=== PATIENT | female | born 1975 | race Two or more races ===

== ENCOUNTER 2017-06-24 16:59 | Emergency (ER) | payer SELFPAY ==
[~2017-06-24] VITALS: Ht 162.6 cm; Wt 61.2 kg
--- NOTE | 2017-06-24 17:05 | NUR ---
BBRA FOR ALCOHOL INTOXICATION, PT WAS FOUND SITTING IN THE PARKING LOT W/ EMPTY BOTTLES OF ALCOHOL. PASSERBY CALLED 911. PATIENT IS CURRENTLY A/OX 3, BREATHING EVEN AND UNLABORED. NO SOB, NAD, VITALS STABLE. SAFETY AND COMFORT MEASURES IN PLACE. AWAITING MD ORDERS
[2017-06-24 17:27] LABS: EOSINOPHILS % (AUTO) 0.8 % (0.0-6.0); HEMATOCRIT 31 % (33-45); HEMOGLOBIN 10.4 g/dL (11.5-14.8); LYMPHOCYTES # (AUTO) 2.4 /CMM (0.8-4.8); LYMPHOCYTES % (AUTO) 47.1 % (20.0-44.0); MEAN CORPUSCULAR HGB CONC 33 g/dl (31.0-36.0); MEAN CORPUSCULAR VOLUME 87 fL (82-100); MONOCYTES # (AUTO) 0.4 /CMM (0.1-1.30); MONOCYTES % (AUTO) 8.2 % (2.0-12.0); NEUTROPHILS # (AUTO) 2.3 /CMM (1.8-8.9); NEUTROPHILS % (AUTO) 43.9 % (43.0-81.0); PLATELET COUNT (AUTO) 297 /CMM (150-450); RDW COEFFICIENT OF VARIATION 15.7 (11.5-15.0); WHITE BLOOD COUNT (AUTO) 5.2 K/uL (4.3-11.0)
[2017-06-24 17:39] LABS: CALCIUM, SERUM 7.9 mg/dL (8.5-10.1); CARBON DIOXIDE 27 mmol/L (21-32); CHLORIDE 110 mmol/L (98-107); CREATININE 0.7 mg/dL (0.6-1.3); GLUCOSE 118 mg/dL (74-106); POTASSIUM 3.1 mmol/L (3.5-5.1); SODIUM SERUM 148 mmol/L (136-145); UREA NITROGEN, BLOOD 15 mg/dL (7-18)
[2017-06-24 17:58] LABS: ALANINE AMINOTRANSFERASE 32 U/L (12-78); ALBUMIN 3.1 g/dL (3.4-5.0); ALCOHOL, BLOOD 438 mg/dL (0-0); ALKALINE PHOSPHATASE 70 U/L (46-116); ASPARTATE AMINOTRANSFERASE 39 U/L (15-37); BILIRUBIN,TOTAL 0.2 mg/dL (0.2-1.0); SALICYLATE 2.8 mg/dL (2.8-20.0); TOTAL PROTEIN, SERUM 6.4 g/dL (6.4-8.2)
[2017-06-24 17:59] LABS: ACETAMINOPHEN < 10 ug/ml (10-30)
--- NOTE | 2017-06-24 19:00 | NUR ---
REPORT GIVEN TO CHRISTIAN SANFORD FOR MARY.
--- NOTE | 2017-06-24 19:01 | NUR ---
RECEIVED REPORT FROM JUVENAL RONDON
--- NOTE | 2017-06-24 19:18 | NUR ---
PT NOTED WITH STEADY GAIT. AOX3. WAS GIVEN JUICE PER CH[employer]DER SILVINA.
--- NOTE | 2017-06-24 19:20 | NUR ---
Patient eloped from facility. [facility] notified.
[2017-06-24 19:22] VITALS: BP 105/61
== END 2017-06-24 19:23 | disposition left against medical advice (07) ==
LOC: ER 17:01
DX: F10.129 Alcohol abuse with intoxication, unspecified (principal); Z59.0 Homelessness
CPT/HCPCS: 36415; 80048-TC; 80076-TC; 85025-TC; A4606; G0480; Z7610